=== PATIENT | male | born 1980 | race American Indian/Alaskan Native ===

== ENCOUNTER 2017-09-23 07:30 | Emergency (ER) | payer SELFPAY ==
[2017-09-23 07:50] VITALS: RESP 18; TEMP 97; O2SAT 98
--- NOTE | 2017-09-23 08:38 | ED PDOC ---
HPI: General Adult Time Seen by Provider: 09/23/17 07:53 Chief Complaint (Nursing): Chest Pain History Per: Patient History/Exam Limitations: no limitations Onset/Duration Of Symptoms: Hrs (x 4) Current Symptoms Are (Timing): Still Present Additional Complaint(s): Catarino is a 37 year old male who presents to the ED complaining of right shoulder pain and right-sided chest pain since 03:00 this morning. Patient reports pain worse with arm movement and deep breaths. No trauma. No coughing or fever. No recent travels. No calf pain or swelling. Patient needs X-Ray for clearance for work because he was not born in the [place]. PPD always results (+). PMD: Provider TBD Past Medical History Reviewed: Historical Data, Nursing Documentation, Vital Signs Vital Signs: Last Vital Signs Temp 97 F L 09/23/17 07:47 Pulse 70 09/23/17 16:40 Resp 18 09/23/17 16:40 BP 130/80 09/23/17 16:40 Pulse Ox 98 10/07/17 13:55 - Medical History PMH: No Chronic Diseases - Family History Family History: States: Unknown Family Hx - Home Medications Home Medications: Ambulatory Orders Medication Instructions Recorded Cyclobenzaprine [Cyclobenzaprine 10 mg PO TID PRN #15 tab 09/23/17 HCl] Naproxen [Naprosyn] 500 mg PO BID PRN #15 tablet 09/23/17 - Allergies Allergies/Adverse Reactions: Allergies Allergy/AdvReac Type Severity Reaction Status Date / Time No Known Allergies Allergy Verified 09/23/17 07:46 Review of Systems ROS Statement: Except As Marked, All Systems Reviewed And Found Negative Constitutional: Negative for: Fever Cardiovascular: Positive for: Chest Pain (Right-sided) Respiratory: Negative for: Cough Musculoskeletal: Positive for: Shoulder Pain (Right). Negative for: Other ( calf pain or swelling) Physical Exam - Reviewed Nursing Documentation Reviewed: Yes Vital Signs Reviewed: Yes - Physical Exam Appears: Positive for: No Acute Distress Cardiovascular/Chest: Positive for: Regular Rate, Rhythm, Other (Palpitation to right lateral chest wall) Respiratory: Positive for: Normal Breath Sounds. Negative for: Respiratory Distress - Laboratory Results Result Diagrams: 09/23/17 09:41 09/23/17 09:41 - ECG Interpretation Of ECG: NSR @ 68, no ST-T changes. O2 Sat by Pulse Oximetry: 98 (RA) Pulse Ox Interpretation: Normal Medical Decision Making Medical Decision Making: Time: 08:26 Impression(s): Right-sided chest pain, Musculoskeletal pain Plan: - EKG - CMP - CBC - D-Dimer - Partial Thromboplastin Time - Prothrombin Time - Chest X-Ray Scribe Attestation: Documented by Raj Moore, acting as a scribe for Aracelis Kasper MD Provider Scribe Attestation: All medical record entries made by the Scribe were at my direction and personally dictated by me. I have reviewed the chart and agree that the record accurately reflects my personal performance of the history, physical exam, medical decision making, and the department course for this patient. I have also personally directed, reviewed, and agree with the discharge instructions and disposition. Disposition - Clinical Impression Clinical Impression: Right-sided chest wall pain - Disposition Referrals: [facility] [Outside] Disposition: Routine/Home Disposition Time: 10:46 Condition: STABLE Prescriptions: Cyclobenzaprine [Cyclobenzaprine HCl] 10 mg PO TID PRN #15 tab PRN Reason: Pain Naproxen [Naprosyn] 500 mg PO BID PRN #15 tablet PRN Reason: Pain, Moderate (4-7) Instructions: Chest Pain Forms: Runner (Bangladeshi)
[2017-09-23 09:46] LABS: BASO # 0.1 K/uL (0.0-0.2); BASO % 1.4 % (0.0-2.0); EOS # 0.1 K/uL (0.0-0.7); EOS % 1.6 % (0.0-4.0); HEMOGLOBIN 13.9 g/dL (12.0-18.0); LYMPH # 1.1 K/uL (1.0-4.3); LYMPH % 28.8 % (20.0-40.0); MEAN CELL VOLUME 92.4 fl (80.0-94.0); MEAN CORPUSCULAR HGB CONC 33.5 g/dL (33.0-37.0); MEAN PLATELET VOLUME 7.8 fl (7.2-11.7); MONO # 0.5 K/uL (0.0-0.8); MONO % 13.3 % (0.0-10.0); NEUT # 2.1 K/uL (1.8-7.0); NEUT % 54.9 % (50.0-75.0); NRBC % 0.1 % (0.0-0.0); RBC 4.49 Mil/uL (4.40-5.90); RED CELL DISTRIBUTION WIDTH 13.6 % (11.5-14.5); WHITE BLOOD COUNT 3.8 K/uL (4.8-10.8)
--- NOTE | 2017-09-23 10:20 | RAD ---
HISTORY: R sided CP COMPARISON: No prior. TECHNIQUE: Chest PA and lateral FINDINGS: LUNGS: No infiltrate bilaterally. Mildly elevated right hemidiaphragm noted. PLEURA: No significant pleural effusion identified. No pneumothorax apparent. CARDIOVASCULAR: Normal. OSSEOUS STRUCTURES: No significant abnormalities. VISUALIZED UPPER ABDOMEN: Normal. OTHER FINDINGS: None. IMPRESSION: No acute infiltrate or definite sign of cardiac disease appreciable. Mildly elevated right hemidiaphragm noted.
[2017-09-23 10:21] LABS: ALB/GLOB RATIO 1.2 (1.0-2.1); ALBUMIN 3.5 g/dL (3.5-5.0); ALT/SGPT 25 U/L (21-72); AST/SGOT 20 U/L (17-59); BLOOD UREA NITROGEN 13 mg/dl (9-20); CALCIUM 8.5 mg/dL (8.4-10.2); GFR AFRICAN-AMERICAN > 60; GFR NON-AFRICAN AMERICAN > 60
[2017-09-23 10:26] LABS: PARTIAL THROMBOPLASTIN TIME 32.9 Seconds (25.6-37.1)
[2017-09-23 16:42] VITALS: BP 130/80; PULSE 70
--- NOTE | 2017-09-23 21:03 | CARD ---
APPROVED REPORT EKG Measurement Heart [id number] <Conclusion> Normal sinus rhythm Normal ECG
== END 2017-09-23 11:30 | disposition home or self-care (01) ==
LOC: H.ER 07:30
DX: R07.89 Other chest pain (principal)